=== PATIENT | female | born 1985 | race Caucasian/White ===

== ENCOUNTER 2022-05-04 12:22 | Emergency (ER) | payer OTHER ==
[2022-05-04] MEDS ORDERED: DIPHTH,PERTUSS(ACELL),TET 0.5 ML DISP.SYRIN IM ONE ×2 (12:38→12:46)
[2022-05-04 12:44] VITALS: BP 126/83; PULSE 89; RESP 18; TEMP 97.8; BMI 22.4
== END 2022-05-04 13:15 | disposition home or self-care (01) ==
LOC: FER 12:22
PROC: 3E0234Z Introduction of Serum, Toxoid and Vaccine into Muscle, Percutaneous Approach (ICD-10-PCS; principal; 2022-05-04)
DX: S61.203A Unspecified open wound of left middle finger without damage to nail, initial encounter (principal); W26.8XXA Contact with other sharp object(s), not elsewhere classified, initial encounter
CPT/HCPCS: 90715; 99282-25